=== PATIENT | male | born 1985 | race Caucasian/White ===

== ENCOUNTER 2024-09-23 23:20 | Emergency (ER) | payer MEDICAID, OTHER ==
[~2024-09-23] VITALS: Ht 175.3 cm; Wt 100.0 kg
[~2024-09-23 23:20] MED LIST: VENL-67 PO
[2024-09-23 23:23] VITALS: TEMP 98.1
[2024-09-24 00:44] LABS: PLATELET COUNT (AUTO) 319 K/uL (150-450); RED BLOOD CELL COUNT(AUTO) 4.94 MIL/uL (4.50-5.90); RED CELL DISTRIBUTION WIDTH 13.1 % (11.5-14.5); WHITE BLOOD COUNT (AUTO) 10.3 K/uL (4.5-11.0)
[2024-09-24 00:51] LABS: CALCIUM, TOTAL 8.4 mg/dL (8.8-10.5); CREATININE 0.94 mg/dL (0.60-1.30); GLOMERULAR FILTR. RATE CALC > 60 mL/min (>60); GLUCOSE,RANDOM 113 mg/dL (70-110); SODIUM SERUM 142 mmol/L (136-145); UREA NITROGEN, BLOOD 14 mg/dL (7-18)
[2024-09-24 01:07] LABS: TOTAL PROTEIN, SERUM 7.4 g/dL (6.4-8.2)
[2024-09-24 01:17] LABS: ASPARTATE AMINOTRANSFERASE 13.0 U/L (15-37)
[2024-09-24] MEDS ORDERED: ONDA-104 PO (01:45)
[2024-09-24] MEDS: ONDANSETRON 4 MG TABLET PO ONE (01:53)
[2024-09-24 02:06] VITALS: BP 126/89; PULSE 60; RESP 16; O2SAT 97
== END 2024-09-24 02:09 | disposition home or self-care (01) ==
LOC: EMS 23:23
DX: K52.9 Noninfective gastroenteritis and colitis, unspecified (principal); Z79.899 Other long term (current) drug therapy; Z59.00 Homelessness unspecified; Z87.891 Personal history of nicotine dependence
CPT/HCPCS: 99283; 80048; 80076; 85025; 36415; Q0162